=== PATIENT | male | born 1960 | race Caucasian/White ===

== ENCOUNTER 2016-10-12 06:40 | Inpatient (IN) | payer OTHER ==
[~2016-10-12] VITALS: Ht 170.2 cm; Wt 68.0 kg
[2016-10-12 06:48] VITALS: BP 189/115
--- NOTE | 2016-10-12 06:57 | NUR ---
AMBULATED TO ER BED 5
--- NOTE | 2016-10-12 07:09 | NUR ---
55Y M BIB SPOUSE, PT SCHEDULED THIS AM FOR CYST REMOVAL ON HIS BACK BY DR DOUGLAS., PT NPO PAST MIDNIGHT. V/S WNL.
[2016-10-12 07:41] LABS: BASOPHILS # (AUTO) 0.1 K/uL (0.00-0.22); BASOPHILS % (AUTO) 0.9 % (0.0-2.0); EOSINOPHILS # (AUTO) 0.3 K/uL (0-0.4); EOSINOPHILS % (AUTO) 3.2 % (0.0-4.0); HEMATOCRIT 48.3 % (36-52); HEMOGLOBIN 15.7 g/dL (12.0-18.0); LYMPHOCYTES # (AUTO) 1.4 K/uL (2.0-11.5); LYMPHOCYTES % (AUTO) 15.5 % (20.5-51.1); MEAN CORPUSCULAR HEMOGLOBIN 28 pg (27-31); MEAN CORPUSCULAR HGB CONC 32 g/dL (33-37); MEAN CORPUSCULAR VOLUME 87 fL (80-94); MONOCYTES # (AUTO) 0.4 K/uL (0.8-1.0); MONOCYTES % (AUTO) 3.9 % (1.7-9.3); NEUTROPHILS # (AUTO) 6.9 K/uL (1.8-7.7); NEUTROPHILS % (AUTO) 76.5 % (42.2-75.2); PLATELET COUNT (AUTO) 338 K/uL (140-450); RED BLOOD CELL COUNT(AUTO) 5.54 MIL/uL (4.20-6.10); RED CELL DISTRIBUTION WIDTH 13.8 % (11.6-13.7); WHITE BLOOD COUNT (AUTO) 9.1 K/uL (4.8-10.8)
[2016-10-12 07:58] LABS: ALBUMIN 3.7 g/dL (3.4-5.0); ANION GAP 12.4 (8-16); CALCIUM 8.6 mg/dL (8.5-10.1); CARBON DIOXIDE 28.8 mmol/L (21-32); POTASSIUM 4.2 mmol/L (3.5-5.1); TOTAL BILIRUBIN 0.3 mg/dL (0.0-1.0); TOTAL PROTEIN, SERUM 8.1 g/dL (6.4-8.2)
[2016-10-12 08:01] LABS: PARTIAL THROMBOPLASTIN TIME 29.1 secs (22-35.6); PROTHROMBIN TIME 9.9 secs (10.8-13.4)
[2016-10-12] MEDS ORDERED: HYDROcodone/APAP 7.5/325 MG 1 TAB PO PRN (08:50)
[2016-10-12] MEDS ORDERED: ACETAMINOPHEN 325 MG TAB PO PRN (08:50)
[2016-10-12] MEDS ORDERED: ONDANSETRON 4 MG/2 ML VIAL IM/IVP PRN (08:50)
[2016-10-12] MEDS ORDERED: MORPHINE SULFATE 2 MG/ML SYR IVP PRN ×2 (08:50→12:25)
[2016-10-12] MEDS ORDERED: NACL 0.9% 1,000 ML IV SCH (08:50)
[2016-10-12] MEDS ORDERED: DOCUSATE SODIUM 100 MG GELCAP PO SCH (09:00)
[2016-10-12] MEDS ORDERED: cloNIDine 0.1 MG TAB PO ONE (09:20)
--- NOTE | 2016-10-12 09:32 | NUR ---
Patient will be admitted to care of DR DOUGLAS. Admited to TELE. Will go to room 111B. Belongings list completed. Report to RUBEN BAE.
--- NOTE | 2016-10-12 09:50 | NUR ---
SPOKE TO RUBEN MARTINEZ IN TELEMETRY UNIT.MEDICATING PATIENT FOR BP 184/112 PRIOR TO ADMISSION
--- NOTE | 2016-10-12 10:07 | NUR ---
BP 183/108 PT GETTING ANXIOUS, RUBEN CARDENAS NOTIFIED DR CAMARILLO, RN DIRECTOR [facility], WILL UPDATE BP, WILL CONTINUE TO MONITOR
[2016-10-12 10:41] LABS: PHOSPHORUS 2.9 mg/dL (2.5-4.9); THYROID STIMULATING HORMONE 1.6 uIU/mL (0.34-3.76)
--- NOTE | 2016-10-12 10:52 | NUR ---
PT ADMITTED AT 1052 [facility] VSS
[2016-10-12 10:55] VITALS: BP 151/105
--- NOTE | 2016-10-12 10:55 | NUR ---
PT ARRIVED FROM ER VIA LUCIO CORONADO, ON ROOM AIR, IV TO RIGHT AC 20G SALINE LOCK. CYST TO MID BACK, INITIAL ASSESSMENT COMPLETED. REVIEWED PLAN OF CARE WITH PT AND , BOTH VERBALIZED UNDERSTANDING. ALL SAFETY PRECAUTIONS MET. ALL NEEDS MET. CALL LIGHT WITHIN REACH. WILL CONTINUE TO MONITOR.
[2016-10-12] MEDS: BUPIVACAINE-MPF 0.25% 30 ML VIAL INJ ONE ×2 (11:06→12:09)
--- NOTE | 2016-10-12 11:20 | NUR ---
PT LEFT UNIT TO OR IN STABLE CONDITION
[2016-10-12] MEDS ORDERED: PROPOFOL 200 MG/20 ML VIAL IV ONE (11:46)
[2016-10-12] MEDS ORDERED: ceFAZolin 1,000 MG VIAL IV ONE (11:46)
[2016-10-12] MEDS ORDERED: fentaNYL 0.05 MG/ML VIAL ONE (11:50)
[2016-10-12] MEDS ORDERED: ONDANSETRON 4 MG/2 ML VIAL IV PRN (12:25)
[2016-10-12] MEDS ORDERED: HYDROcodone/APAP 5/325 MG 1 TAB TAB PO PRN (12:25)
[2016-10-12] MEDS ORDERED: MORPHINE SULFATE 4 MG/ML SYR IV PRN (12:25)
[2016-10-12] MEDS ORDERED: HYDROmorphone 1 MG/ML AMP IVP PRN (12:25)
--- NOTE | 2016-10-12 13:06 | NUR ---
PT RETURNED FROM OR. VS 97.8, BP 142/97, HR 56, PULSE OX 98%. S/P I&D OF CYST ON BACK, DRESSING DRY AND INTACT. PT STATES HE WANTS TO GO HOME NOW, INFORMED PT THAT I WILL TALK TO MD REWARDING DISCHARGE PLAN.
--- NOTE | 2016-10-12 13:51 | NUR ---
PT SIGNED MD JOSETTE AWARE. EDUCATED PT ON RISK AND BENEFITS. PT VERBALIZED UNDERSTANDING. FOLLOW UP INFORMATION GIVEN. PRESCRIPTIONS GIVEN.
[2016-10-12 17:02] LABS: BILIRUBIN,URINE NEGATIVE (NEGATIVE); BLOOD, URINE 1+ (NEGATIVE); LEUKOCYTE ESTERASE ,URINE NEGATIVE (NEGATIVE); NITRITE, URINE NEGATIVE (NEGATIVE); PH,URINE 7.5 (5.0-9.0); PROTEIN,URINE NEGATIVE (NEGATIVE); UGLUCOSE NEGATIVE (NEGATIVE); UROBILINOGEN,URINE 0.2 EU/dL (0.2 - 1)
[2016-10-12 17:09] LABS: APPEARANCE,URINE CLEAR (CLEAR); COLOR,URINE YELLOW (YELLOW)
[2016-10-12 17:19] LABS: BACTERIA,URINE RARE /HPF (None Seen); RBC,URINE 0-5 (RARE) /HPF (0-5); SQUAMOUS EPITHELIAL CELL,UR None Seen /LPF (0-3 (FEW)); WBC,URINE 0-5 (RARE) /HPF (0-5)
--- NOTE | 2016-10-13 08:43 | NUR ---
CM NOTE PER JACLYN PH# [phone], REVIEWS SHOULD ONLY GO TO [facility]. FAXED RETRO REVIEW TO [facility] [phone] CLAIR PH# [phone]
[2016-10-13 09:11] LABS: T4 (THYROXINE) 7.8 ug/dL (4.5-12.0)
[2016-10-13 18:36] LABS: HEMOGLOBIN A1C 5.7 % (4.8-5.6)
== END 2016-10-12 14:12 | disposition left against medical advice (07) | DRG 364 ==
LOC: MED 06:40 → MTU 08:54
PROVIDERS: ADMIT Family Medicine; ATTEND Family Medicine
PROC: 0JB70ZZ Excision of Back Subcutaneous Tissue and Fascia, Open Approach (ICD-10-PCS; 2016-10-12)
PROC: 0J970ZZ Drainage of Back Subcutaneous Tissue and Fascia, Open Approach (ICD-10-PCS; principal; 2016-10-12 11:45)
DX: L03.312 Cellulitis of back [any part except buttock and flank] (principal); I16.0 Hypertensive urgency; L72.3 Sebaceous cyst; I10 Essential (primary) hypertension; Z53.21 Procedure and treatment not carried out due to patient leaving prior to being seen by health care provider; Z72.89 Other problems related to lifestyle
CPT/HCPCS: 36415; 80053; 81001; 82150; 83036; 83690; 83880; 84100; 84436; 84439; 84443; 84479; 85025; 85610; 85730; 93005; 99285; J0690; J2704; J3010; J3490